=== PATIENT | female | born 1980 | race Caucasian/White ===

== ENCOUNTER 2016-05-12 13:45 | Emergency (ER) | payer OTHER ==
[~2016-05-12] VITALS: Ht 172.7 cm; Wt 119.7 kg
[~2016-05-12 13:45] MED LIST: 'PARAFON FORTE500 M1 PO; ALBUTEROL0.09 MG/A2 INH; BENTYL10 MG PO; CLARITIN10 MG PO; CYCLOBENZAPRINE10 MG PO; Claritin-D 10 M1 T24 PO; DIABETA5 MG PO; HYDROCODONE BIT1 T11 PO; LISINOPRIL/HCTZ1 TA3 PO; LISINOPRIL2.5 MG PO; NAPROSYN500 MG PO; OMEPRAZOLE40 MG PO; OXYCONTIN CR20 MG PO; PREDNICOT20 MG PO; Percocet 325 MG1 TAB PO; TESSALON PERLE100 M1 PO; ZANAFLEX4 M1 PO; Zofran4 MG PO
[2016-05-12] MEDS ORDERED: QUALITY CHOICE10 M3 PO (14:39)
== END 2016-05-12 15:12 | disposition home or self-care (01) ==
LOC: ED 13:45
DX: B34.9 Viral infection, unspecified (principal); F17.200 Nicotine dependence, unspecified, uncomplicated; Z90.49 Acquired absence of other specified parts of digestive tract; Z88.8 Allergy status to other drugs, medicaments and biological substances

== ENCOUNTER 2017-02-06 15:57 | Emergency (ER) | payer OTHER ==
[~2017-02-06] VITALS: Ht 172.7 cm; Wt 133.4 kg
[~2017-02-06 15:57] MED LIST changes: +QUALITY CHOICE10 M3 PO
[2017-02-06] MEDS ORDERED: CYCLOBENZAPRINE10 MG PO (17:31)
[2017-02-06] MEDS ORDERED: NAPROSYN500 MG PO (17:31)
== END 2017-02-06 18:50 | disposition home or self-care (01) ==
LOC: ED 15:57
DX: G89.29 Other chronic pain (principal); M54.5 Low back pain; I10 Essential (primary) hypertension; E11.9 Type 2 diabetes mellitus without complications; K21.9 Gastro-esophageal reflux disease without esophagitis; Z88.8 Allergy status to other drugs, medicaments and biological substances; Z79.899 Other long term (current) drug therapy

== ENCOUNTER 2018-05-13 | Emergency (ER) | payer OTHER ==
--- NOTE | ~2018-05-13 | EKG ---
[place], [place] ELECTROCARDIOGRAM REPORT NAME: NARCISO NGO UNIT #: [id number] ROOM: DOCTOR: EPIPHANY DRAFT REPORT BIRTHDATE: [birth year] [facility] Test Date: 2018-05-13 Test Time: 14:30:05 Pat Name: NARCISO NGO Department: Room: Gender: F Sew On Operator: : 1980 Requested By: RENU GUILLEN Order Number: [id number] Reading MD: Wai Pascal MD Measurements Intervals [place] Rate: 60 P: 38 DC: 152 QRS: 33 QRSD: 117 T: 20 QT: 474 QTc: 474 Interpretive Statements Sinus rhythm Nonspecific intraventricular conduction delay No change from earlier ECG this date Electronically Signed On 05-13-2018 18:30:54 PST by Wai Pascal MD CM:EKGRPT:ELECTROCARDIOGRAM REPORT [id number] [id number] RENU ROBLEDO DRAFT REPORT RENU GUILLEN M.D.
--- NOTE | ~2018-05-13 | EKG ---
[place], [place] ELECTROCARDIOGRAM REPORT NAME: NARCISO NGO UNIT #: [id number] ROOM: DOCTOR: EPIPHANY DRAFT REPORT BIRTHDATE: [birth year] [facility] Test Date: 2018-05-13 Test Time: 11:05:21 Pat Name: NARCISO NGO Department: Room: Gender: F Senior Ruby Developer: Jaki Morales : 1980 Requested By: RENU GUILLEN Order Number: [id number] Reading MD: Wai Pascal MD Measurements Intervals [place] Rate: 65 P: 40 MA: 137 QRS: 51 QRSD: 112 T: 25 QT: 440 QTc: 458 Interpretive Statements Sinus rhythm Borderline intraventricular conduction delay Electronically Signed On 05-13-2018 18:28:55 PST by Wai Pascal MD CM:EKGRPT:ELECTROCARDIOGRAM REPORT [id number] RENU ROBLEDO DRAFT REPORT RENU GUILLEN M.D.
[2018-05-13 11:22] LABS: BASO % 0.7 % (0.0-1.0); EOS # 0.2 10*3/uL (0.0-0.4); EOS % 2.7 % (1.0-4.0); HEMATOCRIT 40.6 % (37.0-47.0); HEMOGLOBIN 13.6 g/dl (12.0-16.0); LYMPH # 1.9 10*3/uL (1.3-4.4); LYMPH % 31.2 % (27.0-41.0); MEAN CELL VOLUME 93.8 fl (81.0-99.0); MEAN CORPUSCULAR HGB 31.4 pg (27.0-31.0); MEAN CORPUSCULAR HGB CONC 33.5 g/dl (33.0-37.0); MONO # 0.4 10*3/uL (0.1-1.0); MONO % 6.8 % (3.0-9.0); NEUT # 3.5 10*3/uL (2.3-7.9); NEUT % 58.3 % (47.0-73.0); PLATELET COUNT AUTOMATED 231 10*3/uL (130-400); RED BLOOD COUNT 4.33 10*6/uL (4.10-5.10); RED CELL DISTRI WIDTH 13.2 % (0-14.5)
[2018-05-13 11:34] LABS: ACT PARTIAL THROMBO TIME 23.5 SECONDS (20.8-31.5); INTERNATIONAL NORM RATIO 0.9 (2.0-3.5)
[2018-05-13 11:38] LABS: ALBUMIN 3.4 gm/dl (3.1-4.5); ALKALINE PHOSPHATASE 70 U/L (45-117); BUN 11 mg/dl (7-24); CHLORIDE 104 mmol/L (98-107); CREATININE 0.67 mg/dL (0.55-1.02); POTASSIUM 4.3 mmol/L (3.5-5.1); SGOT/AST 11 IU/L (3-35); SGPT/ALT 23 U/L (12-78); SODIUM 137 mmol/L (136-145)
[2018-05-13 11:40] LABS: TROPONIN I < 0.015 ng/ml (<0.045)
[2018-05-13] MEDS ORDERED: Motrin,Rufen800 MG PO (15:34)
== END 2018-05-13 15:42 | disposition home or self-care (01) ==
PROVIDERS: Emergency Medicine
DX: R07.9 Chest pain, unspecified (principal); R42 Dizziness and giddiness; G89.29 Other chronic pain; K21.9 Gastro-esophageal reflux disease without esophagitis; E11.9 Type 2 diabetes mellitus without complications; Z88.8 Allergy status to other drugs, medicaments and biological substances; Z79.899 Other long term (current) drug therapy; Z79.84 Long term (current) use of oral hypoglycemic drugs; Z90.49 Acquired absence of other specified parts of digestive tract

== ENCOUNTER 2019-01-22 08:00 | Emergency (ER) | payer OTHER ==
[~2019-01-22] VITALS: Ht 172.7 cm; Wt 122.5 kg
[~2019-01-22 08:00] MED LIST changes: +Motrin,Rufen800 MG PO
[2019-01-22] MEDS ORDERED: Motrin,Rufen800 MG PO (09:15)
[2019-01-23] MEDS ORDERED: HYDROCODONE-AC1 EAC1 PO (19:27)
[2019-01-23] MEDS ORDERED: SEPTDS PO (20:16)
== END 2019-01-22 09:31 | disposition home or self-care (01) ==
LOC: ED 08:00
DX: S66.911A Strain of unspecified muscle, fascia and tendon at wrist and hand level, right hand, initial encounter (principal); K21.9 Gastro-esophageal reflux disease without esophagitis; E11.9 Type 2 diabetes mellitus without complications; Z79.899 Other long term (current) drug therapy; Z88.8 Allergy status to other drugs, medicaments and biological substances; X58.XXXA Exposure to other specified factors, initial encounter; Y93.89 Activity, other specified; Y92.89 Other specified places as the place of occurrence of the external cause; Y99.0 Civilian activity done for income or pay

== ENCOUNTER 2019-01-23 19:20 | Emergency (ER) | payer OTHER ==
[~2019-01-23] VITALS: Ht 172.7 cm; Wt 122.5 kg
[2019-01-23] MEDS ORDERED: HYDROCODONE-AC1 EAC1 PO (19:27)
[2019-01-23] MEDS ORDERED: SEPTDS PO (20:16)
== END 2019-01-23 19:55 | disposition home or self-care (01) ==
LOC: ED 19:20
DX: L03.113 Cellulitis of right upper limb (principal); M25.531 Pain in right wrist; E11.9 Type 2 diabetes mellitus without complications; Z88.8 Allergy status to other drugs, medicaments and biological substances; Z79.899 Other long term (current) drug therapy; Z90.49 Acquired absence of other specified parts of digestive tract

== ENCOUNTER 2019-03-31 08:58 | Emergency (ER) | payer OTHER ==
[~2019-03-31] VITALS: Ht 172.7 cm; Wt 119.7 kg
[~2019-03-31 08:58] MED LIST changes: +HYDROCODONE-AC1 EAC1 PO; +SEPTDS PO
[2019-03-31 09:28] LABS: BASO # 0.1 10*3/uL (0.0-0.1); EOS # 0.2 10*3/uL (0.0-0.4); EOS % 3.5 % (1.0-4.0); HEMATOCRIT 37.9 % (37.0-47.0); HEMOGLOBIN 12.2 g/dl (12.0-16.0); LYMPH # 1.6 10*3/uL (1.3-4.4); MEAN CELL VOLUME 90.7 fl (81.0-99.0); MEAN CORPUSCULAR HGB 29.2 pg (27.0-31.0); MEAN CORPUSCULAR HGB CONC 32.2 g/dl (33.0-37.0); MEAN PLATELET VOLUME 9.7 fl (9.6-12.3); MONO # 0.4 10*3/uL (0.1-1.0); MONO % 8.2 % (3.0-9.0); NEUT # 2.7 10*3/uL (2.3-7.9); NEUT % 55.1 % (47.0-73.0); PLATELET COUNT AUTOMATED 240 10*3/uL (130-400); RED BLOOD COUNT 4.18 10*6/uL (4.10-5.10); RED CELL DISTRI WIDTH 14.3 % (0-14.5); WHITE BLOOD COUNT 4.9 10*3/uL (4.8-10.8)
[2019-03-31 09:42] LABS: ALBUMIN 3.4 gm/dl (3.1-4.5); ALKALINE PHOSPHATASE 64 U/L (45-117); BUN 12 mg/dl (7-24); CHLORIDE 107 mmol/L (98-107); CREATININE 0.68 mg/dL (0.55-1.02); SGOT/AST 14 IU/L (3-35); SGPT/ALT 21 U/L (12-78); SODIUM 137 mmol/L (136-145); TOTAL PROTEIN 6.8 gm/dL (6.4-8.2)
[2019-03-31 09:45] LABS: BETA-HCG, QUANT < 1.0 mIU/mL (1-3)
[2019-03-31 09:46] LABS: BILIRUBIN NEGATIVE (NEGATIVE); BLOOD 3+ (NEGATIVE); CLARITY SL CLOUDY (CLEAR); COLOR YELLOW (YELLOW); GLUCOSE 3+ (NEGATIVE); KETONE NEGATIVE (NEGATIVE); LEUKO ESTERASE NEGATIVE (NEGATIVE); NITRITE NEGATIVE (NEGATIVE); PH 5.5 (5.0-9.0); SPECIFIC GRAVITY 1.025 (1.005-1.030); UROBILINOGEN 0.2 E.U./dl (0.2-1.0)
[2019-03-31 10:11] LABS: MUCOUS TRACE; RBC TNTC rbc/hpf (0-2)
== END 2019-03-31 10:42 | disposition home or self-care (01) ==
LOC: ED 08:58
PROVIDERS: Nurse Practitioner Family
DX: D25.1 Intramural leiomyoma of uterus (principal); N93.8 Other specified abnormal uterine and vaginal bleeding; E11.9 Type 2 diabetes mellitus without complications; I10 Essential (primary) hypertension; Z90.49 Acquired absence of other specified parts of digestive tract; Z88.8 Allergy status to other drugs, medicaments and biological substances; Z79.2 Long term (current) use of antibiotics; Z79.899 Other long term (current) drug therapy

== ENCOUNTER 2019-04-24 07:18 | Emergency (ER) | payer OTHER ==
[~2019-04-24] VITALS: Ht 172.7 cm; Wt 117.9 kg
[2019-04-24] MEDS ORDERED: CLARITIN10 MG PO (07:38)
[2019-04-24] MEDS ORDERED: MEDROL DOSEPAK4 MG PO (07:38)
[2019-04-24] MEDS ORDERED: PEPCID20 MG PO (07:38)
== END 2019-04-24 07:40 | disposition home or self-care (01) ==
LOC: ED 07:18
DX: L50.0 Allergic urticaria (principal); T36.1X5A Adverse effect of cephalosporins and other beta-lactam antibiotics, initial encounter; E66.01 Morbid (severe) obesity due to excess calories; E11.9 Type 2 diabetes mellitus without complications; K21.9 Gastro-esophageal reflux disease without esophagitis; I10 Essential (primary) hypertension; Z88.8 Allergy status to other drugs, medicaments and biological substances; Z79.2 Long term (current) use of antibiotics; Z79.899 Other long term (current) drug therapy; Z90.49 Acquired absence of other specified parts of digestive tract; Y92.89 Other specified places as the place of occurrence of the external cause